=== PATIENT | female | born 1960 | race Caucasian/White ===

== ENCOUNTER 2024-03-11 08:15 | Outpatient (CLI) | payer MEDICARE | END 2024-03-11 08:16 | disposition home or self-care (01) | LOC: CSHCT 08:15 | PROVIDERS: ATTEND Internal Medicine Gastroenterology | DX: R10.33 Periumbilical pain (principal); Z12.11 Encounter for screening for malignant neoplasm of colon; N81.4 Uterovaginal prolapse, unspecified; K42.9 Umbilical hernia without obstruction or gangrene; N28.1 Cyst of kidney, acquired | CPT/HCPCS: 74150 ==

== ENCOUNTER 2025-01-10 11:46 | Outpatient (CLI) | payer MEDICARE, OTHER ==
[2025-01-10 13:11] LABS: Estimated GFR - POC 81.0
== END 2025-01-10 11:47 | disposition home or self-care (01) ==
LOC: CSHMRI 11:46
PROVIDERS: ATTEND Internal Medicine Gastroenterology
DX: R10.33 Periumbilical pain (principal); K42.9 Umbilical hernia without obstruction or gangrene; N28.1 Cyst of kidney, acquired
CPT/HCPCS: 36415; 74183; 82565